=== PATIENT | male | born 1970 | race African-American/Black ===

== ENCOUNTER 2016-10-24 08:51 | Emergency (ER) | payer MEDICARE ==
[~2016-10-24] VITALS: Ht 182.9 cm; Wt 140.0 kg
[~2016-10-24 08:51] MED LIST: BENAZEPRIL PO; GLYB5TAB7 PO; INSU3INS6 SUBCUT; LORA0.5T2 PO; METFORMIN PO
[2016-10-24 09:53] VITALS: BP 179/83
== END 2016-10-24 12:55 | disposition left against medical advice (07) ==
LOC: ER 09:38
DX: Z53.21 Procedure and treatment not carried out due to patient leaving prior to being seen by health care provider (principal); E11.9 Type 2 diabetes mellitus without complications; I10 Essential (primary) hypertension

== ENCOUNTER 2017-02-07 00:51 | Emergency (ER) | payer MEDICARE, MEDICAID ==
[~2017-02-07] VITALS: Ht 190.5 cm; Wt 181.0 kg
[2017-02-07] MEDS ORDERED: MORPHINE SULFATE 10 MG/ML CPJ IV ONE (02:45)
[2017-02-07] MEDS ORDERED: SODIUM CHLORIDE 0.9% 1,000 ML IV ONE (02:45)
[2017-02-07 03:15] LABS: BASOPHILS % 0.9 % (0.0-2.0); EOSINOPHILS % 2.3 % (0.0-5.0); HEMATOCRIT. 39.3 % (42.0-52.0); HEMOGLOBIN. 13.6 g/dL (14.0-18.0); LYMPHOCYTES % 30.2 % (20.0-50.0); MEAN CORPUSCULAR HEMOGLOBIN 30.6 pg (28.0-32.0); MEAN CORPUSCULAR VOLUME 88.8 fL (80.0-94.0); MEAN PLATELET VOLUME 9.6 fl (7.4-10.4); MONOCYTES % 5.8 % (2.0-8.0); NEUTROPHILS % 60.8 % (40.0-76.0); PLATELET 312 x1000/uL (130-400); RED BLOOD CELL COUNT 4.43 mill/uL (4.7-6.1); RED CELL DISTRIBUTION WIDTH 12.6 % (11.6-14.6)
[2017-02-07 03:30] LABS: CARBON DIOXIDE 30 mEq/L (21-32); CHLORIDE 101 mEq/L (98-107); TROPONIN I < 0.02 ng/mL (0.00-0.04)
[2017-02-07] MEDS ORDERED: OXYCODONE HCL/ACETAMINOPHEN 5/325MG TABLET PO ONE (06:30)
[2017-02-07 07:01] VITALS: BP 175/99
== END 2017-02-07 07:02 | disposition home or self-care (01) ==
LOC: ER 02:57
DX: B34.9 Viral infection, unspecified (principal); E11.65 Type 2 diabetes mellitus with hyperglycemia; F17.200 Nicotine dependence, unspecified, uncomplicated; I10 Essential (primary) hypertension; Z79.4 Long term (current) use of insulin
CPT/HCPCS: 36415; 71045; 80053; 82962; 83605; 83690; 84484; 85025; 96361; 96374; 99285; J2270; J7030

== ENCOUNTER 2017-03-30 10:57 | Inpatient (IN) | payer MEDICARE, MEDICAID ==
[~2017-03-30] VITALS: Ht 182.9 cm; Wt 190.5 kg
[2017-03-30] MEDS ORDERED: BENAZEPRIL 10MG TABLET PO ONE (12:15)
[2017-03-30] MEDS ORDERED: IPRATROPIUM/ALBUTEROL 0.5-3(2.5)MG/3ML NEB HHN ONE (12:15)
[2017-03-30] MEDS ORDERED: CLONIDINE 0.1MG TABLET PO ONE (12:15)
[2017-03-30 12:24] LABS: BASOPHILS % 0.7 % (0.0-2.0); EOSINOPHILS % 1.9 % (0.0-5.0); HEMATOCRIT. 35.1 % (42.0-52.0); HEMOGLOBIN. 11.8 g/dL (14.0-18.0); LYMPHOCYTES % 8.1 % (20.0-50.0); MEAN CORPUSCULAR HEMOGLOBIN 30.1 pg (28.0-32.0); MEAN CORPUSCULAR VOLUME 89.6 fL (80.0-94.0); MEAN PLATELET VOLUME 9.9 fl (7.4-10.4); MONOCYTES % 4.7 % (2.0-8.0); NEUTROPHILS % 84.6 % (40.0-76.0); PLATELET 249 x1000/uL (130-400); RED BLOOD CELL COUNT 3.92 mill/uL (4.7-6.1); RED CELL DISTRIBUTION WIDTH 12.7 % (11.6-14.6)
[2017-03-30 12:25] LABS: PROTHROMBIN TIME 10.5 sec (9.4-11.6)
[2017-03-30 12:30] LABS: CHLORIDE 102 mEq/L (98-107)
[2017-03-30 12:35] LABS: TROPONIN I < 0.02 ng/mL (0.00-0.04)
[2017-03-30 13:15] LABS: CLARITY URINE CLEAR (CLEAR); COLOR URINE YELLOW (YELLOW); KETONES URINE TRACE (NEGATIVE); LEUKOCYTE ESTERASE URINE NEGATIVE (NEGATIVE); NITRITE URINE NEGATIVE (NEGATIVE); OCCULT BLOOD URINE NEGATIVE (NEGATIVE); PROTEIN URINE 1+ (NEGATIVE); SPECIFIC GRAVITY URINE 1.037 (1.005-1.030)
[2017-03-30 13:38] LABS: *AMPHETAMINES SCREEN URINE NEGATIVE (NEGATIVE); *BARBITURATES SCREEN URINE NEGATIVE (NEGATIVE); *BENZODIAZEPINES SCREEN URINE NEGATIVE (NEGATIVE); *COCAINE SCREEN URINE NEGATIVE (NEGATIVE)
[2017-03-30 13:42] LABS: CANNABINOID URINE SCREEN NEGATIVE (NEGATIVE); METHADONE URINE SCREEN NEGATIVE (NEGATIVE); OPIATES URINE SCREEN PRESUMTIVE POSITIVE (NEGATIVE); PHENCYCLIDINE URINE SCREEN NEGATIVE (NEGATIVE)
[2017-03-30] MEDS ORDERED: DIPHENHYDRAMINE 50MG/ML VIAL IV PRN (18:00)
[2017-03-30] MEDS ORDERED: IPRATROPIUM/ALBUTEROL 0.5-3(2.5)MG/3ML NEB INH PRN (18:00)
[2017-03-30] MEDS ORDERED: ACETAMINOPHEN 650MG SUPP PR PRN (18:00)
[2017-03-30] MEDS ORDERED: ONDANSETRON HCL 4MG/2ML VIAL IV PRN (18:00)
[2017-03-30] MEDS ORDERED: MAGNESIUM/ALUMINUM HYDROXIDE/SIMETHICONE 30ML UDC PO PRN (18:00)
[2017-03-30] MEDS ORDERED: NA PHOS,M-B/NA PHOS,DI-BA ENEMA 118ML PR PRN (18:00)
[2017-03-30] MEDS ORDERED: DEXTROSE 50% WATER 50ML SYRINGE IV PRN (18:00)
[2017-03-30] MEDS: LORAZEPAM 2MG/ML CPJ IV PRN (18:16)
[2017-03-30] MEDS: CLONIDINE 0.1MG TABLET PO PRN (18:17)
[2017-03-30] MEDS: HYDROCODONE/ACETAMINOPHEN 5/325MG TABLET PO PRN (18:17)
[2017-03-30] MEDS ORDERED: PROPOFOL 10MG/ML 100ML 100 ML IV SCH (19:00)
[2017-03-30] MEDS ORDERED: NITROGLYCERIN 50MG PREMIX 250 ML IV ONE (20:15)
[2017-03-30 20:24] LABS: CHLORIDE 102 mEq/L (98-107)
[2017-03-30] MEDS ORDERED: MIDAZOLAM HCL 2 MG/2 ML VIAL IV ONE (20:30)
[2017-03-30] MEDS ORDERED: MIDAZOLAM HCL 50 MG in DEXTROSE 5% WATER 40 ML IV ONE ×4 (20:30)
[2017-03-30 20:37] LABS: BG BASE EXCESS -5.9 mmol/L (-2.0-2.0); BG CARBOXYHEMOGLOBIN 1.3 % (0.5-1.5); BG DEOXYHEMOGLOBIN 4.9 % (0.0-5.0); BG FRACTION INSPIRED OXYGEN 100; BG METHEMOGLOBIN 0.3 % (0.0-1.5); BG OXYHEMOGLOBIN 93.5 % (94.0-97.0); BG PCO2 54.3 mmHg (35.0-45.0); BG PH 7.226 (7.350-7.450); BG PO2 91.4 mmHg (75.0-100.0); BG SAMPLE SITE LEFT RADIAL; BG TIDAL VOLUME(mL) 500 mL; BG TOTAL HEMOGLOBIN 12.3 g/dL (12.0-18.0); BG VENT MODE VENT - A/C; BG VENT RATE 16 set
[2017-03-30] MEDS ORDERED: PIPERACILLIN/TAZ 3.375G PREMIX 50 ML IV ONE (21:00)
[2017-03-30] MEDS ORDERED: ACETAMINOPHEN 650MG/20.3ML UDC PO ONE (21:00)
[2017-03-30] MEDS ORDERED: VANCOMYCIN 1 G PREMIX 200 ML IV ONE (21:00)
[2017-03-30 21:15] LABS: CREATINE KINASE 152 IU/L (39-308)
[2017-03-30] MEDS ORDERED: ASPIRIN 81MG TABLET PO ONE (21:15)
[2017-03-30 22:30] VITALS: BP 148/113
[2017-03-30 23:00] VITALS: BP_SYST 123; BP_SYST 155; BP_DIAS 80; BP_DIAS 89
[2017-03-30 23:30] VITALS: BP 74/50
[2017-03-31] VITALS (76 sets, daily range): BP systolic 63–207; BP diastolic 34–146
[2017-03-31] LABS: BG BASE EXCESS -4.1 mmol/L (-2.0-2.0); BG CARBOXYHEMOGLOBIN 0.8 % (0.5-1.5); BG DEOXYHEMOGLOBIN 10.5 % (0.0-5.0); BG FRACTION INSPIRED OXYGEN 80; BG HCO3 ACT 21.4 mmol/L (22.0-26.0); BG METHEMOGLOBIN 0.2 % (0.0-1.5); BG OXYGEN SATURATION 89.4 % (92.0-98.5); BG OXYHEMOGLOBIN 88.5 % (94.0-97.0); BG PCO2 40.8 mmHg (35.0-45.0); BG PH 7.338 (7.350-7.450); BG PO2 61.2 mmHg (75.0-100.0); BG SAMPLE SITE RIGHT RADIAL; BG TIDAL VOLUME(mL) 600 mL; BG TOTAL HEMOGLOBIN 11.8 g/dL (12.0-18.0); BG VENT MODE VENT - A/C; BG VENT RATE 16 set
[2017-03-31] MEDS ORDERED: PIPERACILLIN/TAZ 2.25G PREMIX 50 ML IV SCH (00:15)
[2017-03-31] MEDS ORDERED: NOREPINEPHRINE 4 MG in DEXT 5% WATER 246 ML IV PRN (00:15)
[2017-03-31 01:05] LABS: CHLORIDE 103 mEq/L (98-107)
[2017-03-31] MEDS: PROPOFOL 10MG/ML 100ML 100 ML IV PRN ×13 (01:51→22:28)
[2017-03-31] MEDS: IPRATROPIUM/ALBUTEROL 0.5-3(2.5)MG/3ML NEB INH SCH ×4 (01:59→20:42)
[2017-03-31] MEDS ORDERED: VANCOMYCIN 1250MG in DEXTROSE 5% WATER 250ML IV SCH (04:00)
[2017-03-31 05:32] LABS: HEMOGLOBIN. 9.6 g/dL (14.0-18.0); MEAN CORPUSCULAR HEMOGLOBIN 29.8 pg (28.0-32.0); MEAN CORPUSCULAR VOLUME 90.2 fL (80.0-94.0); MEAN PLATELET VOLUME 9.7 fl (7.4-10.4); PLATELET 225 x1000/uL (130-400); RED BLOOD CELL COUNT 3.22 mill/uL (4.7-6.1); RED CELL DISTRIBUTION WIDTH 13.2 % (11.6-14.6)
[2017-03-31 06:15] LABS: CHLORIDE 104 mEq/L (98-107)
[2017-03-31 06:21] LABS: CREATINE KINASE 300 IU/L (39-308); CREATINE KINASE MB FRACTION 2.3 ng/mL (0.5-3.6); HDL CHOLESTEROL 31 mg/dL (40-59); LDL CHOLESTEROL 44 mg/dL (5-100); TROPONIN I 0.29 ng/mL (0.00-0.04)
[2017-03-31] MEDS: SODIUM CHLORIDE 0.9% INJ 3ML FLUSH IVF SCH ×3 (06:22→21:53)
[2017-03-31] MEDS: INSULIN LISPRO 100 UNITS/ML SUBCUT SCH ×4 (06:23→21:59)
[2017-03-31] MEDS: BLOOD SUGAR DIAGNOSTIC STRIP TEST SCH ×4 (06:24→21:46)
[2017-03-31] MEDS: PIPERACILLIN/TAZ 3.375G PREMIX 50 ML IV SCH ×3 (06:24→21:54)
[2017-03-31 06:52] LABS: PLATELET ESTIMATE NORMAL
[2017-03-31] MEDS: ENOXAPARIN 40MG/0.4ML SYR SUBCUT SCH ×2 (09:46→21:58)
[2017-03-31] MEDS: FUROSEMIDE 40MG/4ML VIAL IVP SCH (09:46)
[2017-03-31] MEDS ORDERED: PIPERACILLIN/TAZ 3.375G PREMIX 50 ML IV SCH (10:45)
[2017-03-31 11:15] LABS: BG BASE EXCESS 3.4 mmol/L (-2.0-2.0); BG CARBOXYHEMOGLOBIN 0.2 % (0.5-1.5); BG DEOXYHEMOGLOBIN 3.3 % (0.0-5.0); BG FRACTION INSPIRED OXYGEN 100; BG HCO3 ACT 28.1 mmol/L (22.0-26.0); BG METHEMOGLOBIN 0.2 % (0.0-1.5); BG OXYGEN SATURATION 96.7 % (92.0-98.5); BG OXYHEMOGLOBIN 96.3 % (94.0-97.0); BG PCO2 43.4 mmHg (35.0-45.0); BG PH 7.429 (7.350-7.450); BG PO2 93.4 mmHg (75.0-100.0); BG SAMPLE SITE LEFT RADIAL; BG TIDAL VOLUME(mL) 600 mL; BG TOTAL HEMOGLOBIN 10.8 g/dL (12.0-18.0); BG VENT MODE VENT - A/C; BG VENT RATE 16 set
[2017-03-31] MEDS: CLONIDINE 0.1MG TABLET PO PRN ×2 (13:54→22:53)
[2017-03-31] MEDS: LORAZEPAM 2MG/ML CPJ IV PRN ×2 (15:09→20:32)
[2017-03-31] MEDS: NITROGLYCERIN 50MG PREMIX 250 ML IV PRN ×2 (15:30→23:48)
[2017-03-31 15:43] LABS: CREATINE KINASE MB FRACTION 2.6 ng/mL (0.5-3.6); T4 FREE 1.1 ng/dL (0.76-1.46)
[2017-03-31 15:47] LABS: TROPONIN I 0.62 ng/mL (0.00-0.04)
[2017-03-31] MEDS: VANCOMYCIN 2,000 MG in DEXT 5% WATER 500 ML IV SCH (17:37)
[2017-03-31] MEDS: HYDROCODONE/ACETAMINOPHEN 5/325MG TABLET PO PRN (20:25)
[2017-03-31] MEDS: METOPROLOL TARTRATE 25MG TABLET NG SCH (21:53)
[2017-03-31] MEDS: INSULIN GLARGINE UD 100 UNITS/ML SYR SUBCUT SCH (22:16)
[2017-03-31] MEDS: CLONIDINE 0.1MG TABLET NG SCH (22:19)
[2017-03-31] MEDS: MIDAZOLAM HCL 100 MG in DEXT 5% WATER 80 ML IV PRN (22:30)
[2017-04-01] VITALS (99 sets, daily range): BP systolic 100–172; BP diastolic 54–112
[2017-04-01 00:16] LABS: TROPONIN I 0.49 ng/mL (0.00-0.04)
[2017-04-01] MEDS: PROPOFOL 10MG/ML 100ML 100 ML IV PRN ×11 (00:17→23:16)
[2017-04-01] MEDS: IPRATROPIUM/ALBUTEROL 0.5-3(2.5)MG/3ML NEB INH SCH ×4 (02:43→20:53)
[2017-04-01] MEDS: PIPERACILLIN/TAZ 3.375G PREMIX 50 ML IV SCH ×4 (03:56→21:26)
[2017-04-01] MEDS: NITROGLYCERIN 50MG PREMIX 250 ML IV PRN ×2 (04:26→11:54)
[2017-04-01] MEDS: CLONIDINE 0.1MG TABLET PO PRN ×3 (05:47→17:34)
[2017-04-01] MEDS: VANCOMYCIN 2,000 MG in DEXT 5% WATER 500 ML IV SCH ×2 (05:47→17:12)
[2017-04-01] MEDS: SODIUM CHLORIDE 0.9% INJ 3ML FLUSH IVF SCH ×3 (05:48→23:23)
[2017-04-01] MEDS: BLOOD SUGAR DIAGNOSTIC STRIP TEST SCH ×4 (06:05→21:54)
[2017-04-01] MEDS: CLONIDINE 0.1MG TABLET NG SCH ×3 (07:01→23:15)
[2017-04-01] MEDS: INSULIN LISPRO 100 UNITS/ML SUBCUT SCH ×4 (07:01→21:27)
[2017-04-01 07:11] LABS: CREATINE KINASE MB FRACTION 0.9 ng/mL (0.5-3.6); TROPONIN I 0.31 ng/mL (0.00-0.04)
[2017-04-01] MEDS: MIDAZOLAM HCL 100 MG in DEXT 5% WATER 80 ML IV PRN ×2 (07:55→17:34)
[2017-04-01] MEDS: FUROSEMIDE 40MG/4ML VIAL IVP SCH (08:37)
[2017-04-01] MEDS: ENOXAPARIN 40MG/0.4ML SYR SUBCUT SCH ×2 (08:37→21:29)
[2017-04-01] MEDS: METOPROLOL TARTRATE 25MG TABLET NG SCH ×2 (08:38→21:30)
[2017-04-01] MEDS: INSULIN GLARGINE UD 100 UNITS/ML SYR SUBCUT SCH ×2 (10:11→23:18)
[2017-04-01] MEDS ORDERED: AMLODIPINE 10MG TABLET PO SCH (12:00)
[2017-04-01 12:23] LABS: BASOPHILS % 0.6 % (0.0-2.0); EOSINOPHILS % 0.2 % (0.0-5.0); HEMATOCRIT. 26.5 % (42.0-52.0); HEMOGLOBIN. 8.8 g/dL (14.0-18.0); LYMPHOCYTES % 7.5 % (20.0-50.0); MEAN CORPUSCULAR HEMOGLOBIN 29.8 pg (28.0-32.0); MEAN CORPUSCULAR VOLUME 89.9 fL (80.0-94.0); MEAN PLATELET VOLUME 10.2 fl (7.4-10.4); MONOCYTES % 6.2 % (2.0-8.0); NEUTROPHILS % 85.5 % (40.0-76.0); PLATELET 237 x1000/uL (130-400); RED BLOOD CELL COUNT 2.95 mill/uL (4.7-6.1); RED CELL DISTRIBUTION WIDTH 12.9 % (11.6-14.6)
[2017-04-01 12:30] LABS: CHLORIDE 103 mEq/L (98-107)
[2017-04-01 13:44] LABS: BG BASE EXCESS 4.6 mmol/L (-2.0-2.0); BG CARBOXYHEMOGLOBIN 0.3 % (0.5-1.5); BG DEOXYHEMOGLOBIN 3.3 % (0.0-5.0); BG FRACTION INSPIRED OXYGEN 90; BG HCO3 ACT 29.5 mmol/L (22.0-26.0); BG METHEMOGLOBIN 0.5 % (0.0-1.5); BG OXYGEN SATURATION 96.7 % (92.0-98.5); BG OXYHEMOGLOBIN 95.9 % (94.0-97.0); BG PCO2 45.9 mmHg (35.0-45.0); BG PH 7.426 (7.350-7.450); BG PO2 90.7 mmHg (75.0-100.0); BG SAMPLE SITE RIGHT RADIAL; BG TIDAL VOLUME(mL) 650 mL; BG TOTAL HEMOGLOBIN 9.7 g/dL (12.0-18.0); BG VENT MODE VENT - A/C; BG VENT RATE 16 set
[2017-04-01] MEDS ORDERED: POTASSIUM CHLORIDE 20MEQ TABLET SR PO SCH (15:00)
[2017-04-01 20:43] LABS: BG BASE EXCESS 6.4 mmol/L (-2.0-2.0); BG CARBOXYHEMOGLOBIN 0.1 % (0.5-1.5); BG DEOXYHEMOGLOBIN 0.6 % (0.0-5.0); BG FRACTION INSPIRED OXYGEN 90; BG METHEMOGLOBIN 0.4 % (0.0-1.5); BG OXYGEN SATURATION 99.4 % (92.0-98.5); BG OXYHEMOGLOBIN 98.9 % (94.0-97.0); BG PCO2 58.2 mmHg (35.0-45.0); BG PH 7.371 (7.350-7.450); BG PO2 253.8 mmHg (75.0-100.0); BG SAMPLE SITE RIGHT RADIAL; BG TIDAL VOLUME(mL) 650 mL; BG TOTAL HEMOGLOBIN 10.5 g/dL (12.0-18.0); BG VENT MODE VENT - A/C; BG VENT RATE 16 set
[2017-04-01] MEDS: ACETAMINOPHEN 650MG/20.3ML UDC GT PRN (21:26)
[2017-04-02] VITALS (87 sets, daily range): BP systolic 119–187; BP diastolic 63–104
[2017-04-02] MEDS: PROPOFOL 10MG/ML 100ML 100 ML IV PRN ×6 (01:01→10:17)
[2017-04-02] MEDS: PIPERACILLIN/TAZ 3.375G PREMIX 50 ML IV SCH ×4 (02:38→22:00)
[2017-04-02] MEDS: IPRATROPIUM/ALBUTEROL 0.5-3(2.5)MG/3ML NEB INH SCH ×4 (03:15→20:26)
[2017-04-02] MEDS: MIDAZOLAM HCL 100 MG in DEXT 5% WATER 80 ML IV PRN ×2 (03:50→14:11)
[2017-04-02] MEDS: VANCOMYCIN 2,000 MG in DEXT 5% WATER 500 ML IV SCH ×3 (05:03→22:00)
[2017-04-02] MEDS: SODIUM CHLORIDE 0.9% INJ 3ML FLUSH IVF SCH ×3 (05:04→21:53)
[2017-04-02] MEDS: CLONIDINE 0.1MG TABLET NG SCH ×3 (05:04→22:01)
[2017-04-02] MEDS: BLOOD SUGAR DIAGNOSTIC STRIP TEST SCH ×4 (05:52→21:00)
[2017-04-02] MEDS: INSULIN LISPRO 100 UNITS/ML SUBCUT SCH ×4 (06:03→22:03)
[2017-04-02 06:44] LABS: BASOPHILS % 0.4 % (0.0-2.0); EOSINOPHILS % 2.2 % (0.0-5.0); HEMATOCRIT. 27.3 % (42.0-52.0); HEMOGLOBIN. 8.8 g/dL (14.0-18.0); LYMPHOCYTES % 9.2 % (20.0-50.0); MEAN CORPUSCULAR HEMOGLOBIN 29.3 pg (28.0-32.0); MEAN CORPUSCULAR VOLUME 91.2 fL (80.0-94.0); MEAN PLATELET VOLUME 10.1 fl (7.4-10.4); MONOCYTES % 6.1 % (2.0-8.0); NEUTROPHILS % 82.1 % (40.0-76.0); PLATELET 254 x1000/uL (130-400); RED CELL DISTRIBUTION WIDTH 13.3 % (11.6-14.6)
[2017-04-02 07:31] LABS: CHLORIDE 101 mEq/L (98-107)
[2017-04-02] MEDS: ACETAMINOPHEN 650MG/20.3ML UDC GT PRN (08:01)
[2017-04-02] MEDS: AMLODIPINE 10MG TABLET PO SCH (08:02)
[2017-04-02] MEDS: ENOXAPARIN 40MG/0.4ML SYR SUBCUT SCH ×2 (08:02→22:01)
[2017-04-02] MEDS: METOPROLOL TARTRATE 25MG TABLET NG SCH ×2 (08:02→22:01)
[2017-04-02] MEDS: FUROSEMIDE 40MG/4ML VIAL IVP SCH (08:02)
[2017-04-02 08:55] LABS: BG BASE EXCESS 5.5 mmol/L (-2.0-2.0); BG CARBOXYHEMOGLOBIN 0.9 % (0.5-1.5); BG DEOXYHEMOGLOBIN 1.6 % (0.0-5.0); BG FRACTION INSPIRED OXYGEN 65; BG HCO3 ACT 30.6 mmol/L (22.0-26.0); BG METHEMOGLOBIN 0.5 % (0.0-1.5); BG OXYGEN SATURATION 98.4 % (92.0-98.5); BG PCO2 47.1 mmHg (35.0-45.0); BG PO2 120.1 mmHg (75.0-100.0); BG SAMPLE SITE RIGHT RADIAL; BG TIDAL VOLUME(mL) 650 mL; BG TOTAL HEMOGLOBIN 9.7 g/dL (12.0-18.0); BG VENT MODE VENT - A/C; BG VENT RATE 16 set
[2017-04-02] MEDS: INSULIN GLARGINE UD 100 UNITS/ML SYR SUBCUT SCH ×2 (10:16→22:03)
[2017-04-02] MEDS: FENTANYL CITRATE/PF 500 MCG in SODIUM CHLORIDE 0.9% 40 ML IV PRN ×2 (11:33→17:24)
[2017-04-02] MEDS ORDERED: BISACODYL 10MG SUPP PR PRN (11:45)
[2017-04-02] MEDS: PANTOPRAZOLE SODIUM 40 MG/VIAL IV SCH (13:00)
[2017-04-02] MEDS: DOCUSATE SODIUM SUGAR FREE 100MG/10ML UDC NG SCH (13:01)
[2017-04-02] MEDS: METHYLPREDNISOLONE SOD SUCC 40 MG/ML VIAL IV SCH ×2 (14:17→22:56)
[2017-04-02] MEDS: CLONIDINE 0.1MG TABLET PO PRN (16:14)
[2017-04-03] VITALS (81 sets, daily range): BP systolic 142–201; BP diastolic 68–138
[2017-04-03] MEDS: MIDAZOLAM HCL 100 MG in DEXT 5% WATER 80 ML IV PRN ×2 (01:37→13:44)
[2017-04-03] MEDS: IPRATROPIUM/ALBUTEROL 0.5-3(2.5)MG/3ML NEB INH SCH ×4 (02:38→20:12)
[2017-04-03] MEDS: PIPERACILLIN/TAZ 3.375G PREMIX 50 ML IV SCH ×4 (02:45→20:30)
[2017-04-03] MEDS: FENTANYL CITRATE/PF 500 MCG in SODIUM CHLORIDE 0.9% 40 ML IV PRN ×3 (04:29→23:18)
[2017-04-03] MEDS: VANCOMYCIN 2,000 MG in DEXT 5% WATER 500 ML IV SCH ×3 (04:32→20:30)
[2017-04-03] MEDS: SODIUM CHLORIDE 0.9% INJ 3ML FLUSH IVF SCH ×3 (06:00→20:32)
[2017-04-03] MEDS: BLOOD SUGAR DIAGNOSTIC STRIP TEST SCH ×4 (06:30→20:32)
[2017-04-03] MEDS: INSULIN LISPRO 100 UNITS/ML SUBCUT SCH ×4 (06:40→20:32)
[2017-04-03] MEDS: CLONIDINE 0.1MG TABLET NG SCH ×3 (06:40→21:02)
[2017-04-03 07:52] LABS: BG BASE EXCESS 5.1 mmol/L (-2.0-2.0); BG CARBOXYHEMOGLOBIN 1.4 % (0.5-1.5); BG DEOXYHEMOGLOBIN 3.5 % (0.0-5.0); BG FRACTION INSPIRED OXYGEN 60; BG METHEMOGLOBIN 0.3 % (0.0-1.5); BG OXYGEN SATURATION 96.4 % (92.0-98.5); BG OXYHEMOGLOBIN 94.8 % (94.0-97.0); BG PH 7.478 (7.350-7.450); BG SAMPLE SITE LEFT RADIAL; BG TIDAL VOLUME(mL) 650 mL; BG TOTAL HEMOGLOBIN 13.1 g/dL (12.0-18.0); BG VENT MODE VENT - A/C; BG VENT RATE 16 set
[2017-04-03] MEDS: METHYLPREDNISOLONE SOD SUCC 40 MG/ML VIAL IV SCH ×2 (10:28→20:30)
[2017-04-03] MEDS: DOCUSATE SODIUM SUGAR FREE 100MG/10ML UDC NG SCH (10:28)
[2017-04-03] MEDS: FUROSEMIDE 40MG/4ML VIAL IVP SCH (10:28)
[2017-04-03] MEDS: METOPROLOL TARTRATE 25MG TABLET NG SCH ×2 (10:29→20:30)
[2017-04-03] MEDS: AMLODIPINE 10MG TABLET PO SCH (10:29)
[2017-04-03] MEDS: ENOXAPARIN 40MG/0.4ML SYR SUBCUT SCH ×2 (10:30→20:30)
[2017-04-03] MEDS: INSULIN GLARGINE UD 100 UNITS/ML SYR SUBCUT SCH ×2 (10:35→22:17)
[2017-04-03] MEDS: PANTOPRAZOLE SODIUM 40 MG/VIAL IV SCH (12:36)
[2017-04-03] MEDS: ACETAMINOPHEN 650MG/20.3ML UDC GT PRN (12:36)
[2017-04-03] MEDS: CLONIDINE 0.1MG TABLET PO PRN (16:55)
[2017-04-03 17:18] LABS: CHLORIDE 102 mEq/L (98-107)
[2017-04-03] MEDS ORDERED: DEXTROSE 50% WATER 50ML SYRINGE IV PRN (19:45)
[2017-04-04] VITALS (98 sets, daily range): BP systolic 132–204; BP diastolic 57–163
[2017-04-04] MEDS: MIDAZOLAM HCL 100 MG in DEXT 5% WATER 80 ML IV PRN (00:34)
[2017-04-04] MEDS: IPRATROPIUM/ALBUTEROL 0.5-3(2.5)MG/3ML NEB INH SCH ×4 (01:35→19:54)
[2017-04-04] MEDS: PIPERACILLIN/TAZ 3.375G PREMIX 50 ML IV SCH ×4 (02:49→21:22)
[2017-04-04] MEDS: CLONIDINE 0.1MG TABLET PO PRN ×2 (02:49→07:10)
[2017-04-04] MEDS: SODIUM CHLORIDE 0.9% INJ 3ML FLUSH IVF SCH ×3 (05:12→21:27)
[2017-04-04] MEDS: VANCOMYCIN 2,000 MG in DEXT 5% WATER 500 ML IV SCH ×3 (05:13→21:22)
[2017-04-04] MEDS: CLONIDINE 0.1MG TABLET NG SCH ×3 (05:13→21:24)
[2017-04-04] MEDS: NITROGLYCERIN 50MG PREMIX 250 ML IV PRN ×2 (06:04→17:57)
[2017-04-04] MEDS: INSULIN LISPRO 100 UNITS/ML SUBCUT SCH ×4 (06:22→21:27)
[2017-04-04] MEDS: BLOOD SUGAR DIAGNOSTIC STRIP TEST SCH ×4 (06:22→21:00)
[2017-04-04] MEDS: DOCUSATE SODIUM SUGAR FREE 100MG/10ML UDC NG SCH (09:00)
[2017-04-04] MEDS: ACETAMINOPHEN 650MG/20.3ML UDC GT PRN ×2 (09:47→15:44)
[2017-04-04] MEDS: METHYLPREDNISOLONE SOD SUCC 40 MG/ML VIAL IV SCH ×2 (09:48→21:22)
[2017-04-04] MEDS: FUROSEMIDE 40MG/4ML VIAL IVP SCH (09:51)
[2017-04-04] MEDS: METOPROLOL TARTRATE 25MG TABLET NG SCH ×2 (09:51→21:24)
[2017-04-04] MEDS: HYDRALAZINE HCL 50MG TABLET PO SCH ×3 (09:51→21:24)
[2017-04-04] MEDS: ENOXAPARIN 40MG/0.4ML SYR SUBCUT SCH ×2 (09:52→21:22)
[2017-04-04] MEDS: AMLODIPINE 10MG TABLET PO SCH (09:55)
[2017-04-04] MEDS: INSULIN GLARGINE UD 100 UNITS/ML SYR SUBCUT SCH ×2 (10:01→21:26)
[2017-04-04 12:27] LABS: CHLORIDE 106 mEq/L (98-107)
[2017-04-04 12:35] LABS: BG BASE EXCESS 11.1 mmol/L (-2.0-2.0); BG CARBOXYHEMOGLOBIN 0.3 % (0.5-1.5); BG DEOXYHEMOGLOBIN 4.8 % (0.0-5.0); BG FRACTION INSPIRED OXYGEN 70; BG HCO3 ACT 35.4 mmol/L (22.0-26.0); BG METHEMOGLOBIN 0.2 % (0.0-1.5); BG OXYGEN SATURATION 95.2 % (92.0-98.5); BG OXYHEMOGLOBIN 94.7 % (94.0-97.0); BG PCO2 46.1 mmHg (35.0-45.0); BG PH 7.503 (7.350-7.450); BG PO2 76.5 mmHg (75.0-100.0); BG SAMPLE SITE LEFT RADIAL; BG TIDAL VOLUME(mL) 650 mL; BG TOTAL HEMOGLOBIN 9.3 g/dL (12.0-18.0); BG VENT MODE VENT - A/C; BG VENT RATE 16 set
[2017-04-04] MEDS: PANTOPRAZOLE SODIUM 40 MG/VIAL IV SCH (12:54)
[2017-04-04 13:02] LABS: BASOPHILS % 0.9 % (0.0-2.0); EOSINOPHILS % 1.3 % (0.0-5.0); HEMATOCRIT. 26.2 % (42.0-52.0); HEMOGLOBIN. 8.3 g/dL (14.0-18.0); LYMPHOCYTES % 7.9 % (20.0-50.0); MEAN CORPUSCULAR HEMOGLOBIN 28.7 pg (28.0-32.0); MEAN CORPUSCULAR VOLUME 90.1 fL (80.0-94.0); MEAN PLATELET VOLUME 8.8 fl (7.4-10.4); MONOCYTES % 7.9 % (2.0-8.0); PLATELET 346 x1000/uL (130-400); RED BLOOD CELL COUNT 2.91 mill/uL (4.7-6.1); RED CELL DISTRIBUTION WIDTH 13.3 % (11.6-14.6)
[2017-04-04] MEDS ORDERED: LIDOCAINE HCL/PF 1% 10 MG/ML 5ML VIAL ONE (14:27)
[2017-04-04] MEDS: FENTANYL CITRATE/PF 500 MCG in SODIUM CHLORIDE 0.9% 40 ML IV PRN ×2 (14:56→21:28)
[2017-04-04] MEDS ORDERED: POTASSIUM CHLORIDE INJ 40 MEQ in SODIUM CHLORIDE 0.9% 250 ML IV SCH (16:00)
[2017-04-04] MEDS: HYDROCODONE/ACETAMINOPHEN 5/325MG TABLET PO PRN (16:17)
[2017-04-04] MEDS ORDERED: PREG100C PO (16:53)
[2017-04-04] MEDS ORDERED: OXYC15TA88 PO (16:53)
[2017-04-04] MEDS ORDERED: CYCL5TAB PO (16:53)
[2017-04-04] MEDS ORDERED: OMEP20CA10 PO (16:53)
[2017-04-04] MEDS ORDERED: HYDR-4009 PO (16:53)
[2017-04-04] MEDS ORDERED: TRIA1TAB92 PO (16:53)
[2017-04-04] MEDS ORDERED: CHOL20004 PO (16:53)
[2017-04-04] MEDS ORDERED: FLUO-124 PO (16:53)
[2017-04-04] MEDS ORDERED: ZOLP10TA6 PO (16:53)
[2017-04-04] MEDS ORDERED: PENT400T2 PO (16:53)
[2017-04-05] VITALS (90 sets, daily range): BP systolic 90–186; BP diastolic 45–92
[2017-04-05] MEDS: MIDAZOLAM HCL 100 MG in DEXT 5% WATER 80 ML IV PRN (01:21)
[2017-04-05] MEDS: CLONIDINE 0.1MG TABLET PO PRN ×3 (01:43→15:08)
[2017-04-05] MEDS: IPRATROPIUM/ALBUTEROL 0.5-3(2.5)MG/3ML NEB INH SCH ×4 (01:58→20:09)
[2017-04-05] MEDS: FENTANYL CITRATE/PF 500 MCG in SODIUM CHLORIDE 0.9% 40 ML IV PRN ×3 (02:54→15:03)
[2017-04-05] MEDS: NITROGLYCERIN 50MG PREMIX 250 ML IV PRN ×3 (02:54→15:02)
[2017-04-05] MEDS: PIPERACILLIN/TAZ 3.375G PREMIX 50 ML IV SCH ×2 (02:57→08:58)
[2017-04-05] MEDS: SODIUM CHLORIDE 0.9% INJ 3ML FLUSH IVF SCH ×3 (05:10→22:51)
[2017-04-05] MEDS: VANCOMYCIN 2,000 MG in DEXT 5% WATER 500 ML IV SCH ×2 (05:58→12:09)
[2017-04-05] MEDS: BLOOD SUGAR DIAGNOSTIC STRIP TEST SCH ×4 (05:59→21:26)
[2017-04-05] MEDS: CLONIDINE 0.1MG TABLET NG SCH (05:59)
[2017-04-05] MEDS: HYDRALAZINE HCL 50MG TABLET PO SCH ×3 (05:59→22:49)
[2017-04-05] MEDS: INSULIN LISPRO 100 UNITS/ML SUBCUT SCH ×4 (06:00→21:32)
[2017-04-05 06:01] LABS: CHLORIDE 106 mEq/L (98-107)
[2017-04-05 06:05] LABS: BASOPHILS % 0.7 % (0.0-2.0); EOSINOPHILS % 0.6 % (0.0-5.0); HEMOGLOBIN. 7.7 g/dL (14.0-18.0); LYMPHOCYTES % 15.2 % (20.0-50.0); MEAN CORPUSCULAR HEMOGLOBIN 29.3 pg (28.0-32.0); MEAN CORPUSCULAR VOLUME 91.3 fL (80.0-94.0); MEAN PLATELET VOLUME 9.7 fl (7.4-10.4); MONOCYTES % 9.9 % (2.0-8.0); NEUTROPHILS % 73.6 % (40.0-76.0); PLATELET 356 x1000/uL (130-400); RED BLOOD CELL COUNT 2.62 mill/uL (4.7-6.1)
[2017-04-05] MEDS: ACETAMINOPHEN 650MG/20.3ML UDC GT PRN ×2 (07:01→16:31)
[2017-04-05] MEDS: AMLODIPINE 10MG TABLET PO SCH (08:58)
[2017-04-05] MEDS: FUROSEMIDE 40MG/4ML VIAL IVP SCH (08:58)
[2017-04-05] MEDS: METHYLPREDNISOLONE SOD SUCC 40 MG/ML VIAL IV SCH ×2 (08:58→21:20)
[2017-04-05] MEDS: ENOXAPARIN 40MG/0.4ML SYR SUBCUT SCH ×2 (09:00→21:00)
[2017-04-05] MEDS: METOPROLOL TARTRATE 25MG TABLET NG SCH ×2 (09:01→21:31)
[2017-04-05] MEDS: DOCUSATE SODIUM SUGAR FREE 100MG/10ML UDC NG SCH (09:03)
[2017-04-05] MEDS: INSULIN GLARGINE UD 100 UNITS/ML SYR SUBCUT SCH (09:06)
[2017-04-05] MEDS: PANTOPRAZOLE SODIUM 40 MG/VIAL IV SCH (11:16)
[2017-04-05 12:17] LABS: BG BASE EXCESS 7.6 mmol/L (-2.0-2.0); BG CARBOXYHEMOGLOBIN 0.2 % (0.5-1.5); BG DEOXYHEMOGLOBIN 8.1 % (0.0-5.0); BG FRACTION INSPIRED OXYGEN 60; BG METHEMOGLOBIN 0.3 % (0.0-1.5); BG OXYGEN SATURATION 91.9 % (92.0-98.5); BG OXYHEMOGLOBIN 91.4 % (94.0-97.0); BG PCO2 44.9 mmHg (35.0-45.0); BG PH 7.471 (7.350-7.450); BG PO2 64.2 mmHg (75.0-100.0); BG SAMPLE SITE RIGHT RADIAL; BG TIDAL VOLUME(mL) 650 mL; BG TOTAL HEMOGLOBIN 9.4 g/dL (12.0-18.0); BG VENT MODE VENT - A/C; BG VENT RATE 16 set
[2017-04-05] MEDS: CLONIDINE 0.2MG TABLET NG SCH ×2 (13:30→22:50)
[2017-04-05] MEDS: CEFEPIME 1,000 MG in SODIUM CHLORIDE 0.9% 50 ML IV SCH (14:01)
[2017-04-05] MEDS: AZITHROMYCIN 500 MG TABLET PO SCH (15:07)
[2017-04-05] MEDS ORDERED: INSULIN GLARGINE UD 100 UNITS/ML SYR SUBCUT NR (19:00)
[2017-04-05] MEDS ORDERED: INSULIN GLARGINE UD 100 UNITS/ML SYR SUBCUT SCH (22:00)
[2017-04-06] VITALS (93 sets, daily range): BP systolic 111–177; BP diastolic 50–96
[2017-04-06] MEDS: FENTANYL CITRATE/PF 500 MCG in SODIUM CHLORIDE 0.9% 40 ML IV PRN ×3 (00:06→16:38)
[2017-04-06] MEDS: IPRATROPIUM/ALBUTEROL 0.5-3(2.5)MG/3ML NEB INH SCH ×4 (01:56→19:50)
[2017-04-06] MEDS: CEFEPIME 1,000 MG in SODIUM CHLORIDE 0.9% 50 ML IV SCH ×2 (02:45→13:31)
[2017-04-06] MEDS: CLONIDINE 0.1MG TABLET PO PRN (02:58)
[2017-04-06] MEDS: MIDAZOLAM HCL 100 MG in DEXT 5% WATER 80 ML IV PRN ×2 (04:12→16:38)
[2017-04-06 05:46] LABS: BASOPHILS % 0.5 % (0.0-2.0); EOSINOPHILS % 0.3 % (0.0-5.0); HEMATOCRIT. 26.1 % (42.0-52.0); HEMOGLOBIN. 8.7 g/dL (14.0-18.0); LYMPHOCYTES % 11.2 % (20.0-50.0); MEAN CORPUSCULAR HEMOGLOBIN 29.9 pg (28.0-32.0); MEAN CORPUSCULAR VOLUME 90.1 fL (80.0-94.0); MEAN PLATELET VOLUME 9.8 fl (7.4-10.4); MONOCYTES % 7.5 % (2.0-8.0); NEUTROPHILS % 80.5 % (40.0-76.0); PLATELET 375 x1000/uL (130-400); RED CELL DISTRIBUTION WIDTH 14.9 % (11.6-14.6)
[2017-04-06] MEDS: HYDRALAZINE HCL 50MG TABLET PO SCH ×3 (06:18→22:04)
[2017-04-06] MEDS: CLONIDINE 0.2MG TABLET NG SCH ×3 (06:19→22:05)
[2017-04-06] MEDS: INSULIN LISPRO 100 UNITS/ML SUBCUT SCH ×4 (06:20→21:19)
[2017-04-06] MEDS: BLOOD SUGAR DIAGNOSTIC STRIP TEST SCH ×4 (06:22→21:20)
[2017-04-06] MEDS: SODIUM CHLORIDE 0.9% INJ 3ML FLUSH IVF SCH ×3 (06:22→22:05)
[2017-04-06 06:24] LABS: CHLORIDE 104 mEq/L (98-107)
[2017-04-06 06:43] LABS: CREATINE KINASE 99 IU/L (39-308)
[2017-04-06] MEDS: ACETAMINOPHEN 650MG/20.3ML UDC GT PRN ×2 (06:55→14:41)
[2017-04-06 07:16] LABS: BARBITURATE SCREEN Negative ug/mL (Cutoff:0.1); BENZODIAZEPINE SCREEN Negative ng/mL (Cutoff:20); OPIATES SCREEN ++POSITIVE++ ng/mL (Cutoff:5); PHENCYCLIDINE SCREEN Negative ng/mL (Cutoff:8)
[2017-04-06 07:52] LABS: BG CARBOXYHEMOGLOBIN 0.7 % (0.5-1.5); BG DEOXYHEMOGLOBIN 8.9 % (0.0-5.0); BG HCO3 ACT 32.9 mmol/L (22.0-26.0); BG METHEMOGLOBIN 0.3 % (0.0-1.5); BG OXYHEMOGLOBIN 90.1 % (94.0-97.0); BG PCO2 48.2 mmHg (35.0-45.0); BG PH 7.452 (7.350-7.450); BG SAMPLE SITE RIGHT RADIAL; BG TIDAL VOLUME(mL) 650 mL; BG TOTAL HEMOGLOBIN 8.6 g/dL (12.0-18.0); BG VENT MODE VENT - A/C; BG VENT RATE 16 set
[2017-04-06] MEDS: AMLODIPINE 10MG TABLET PO SCH (08:08)
[2017-04-06] MEDS: DOCUSATE SODIUM SUGAR FREE 100MG/10ML UDC NG SCH (08:08)
[2017-04-06] MEDS: AZITHROMYCIN 500 MG TABLET PO SCH (08:08)
[2017-04-06] MEDS: METHYLPREDNISOLONE SOD SUCC 40 MG/ML VIAL IV SCH ×2 (08:08→21:23)
[2017-04-06] MEDS: FUROSEMIDE 40MG/4ML VIAL IVP SCH (08:08)
[2017-04-06] MEDS: METOPROLOL TARTRATE 25MG TABLET NG SCH ×2 (08:09→21:23)
[2017-04-06] MEDS: ENOXAPARIN 40MG/0.4ML SYR SUBCUT SCH ×2 (08:10→21:28)
[2017-04-06] MEDS ORDERED: INSULIN GLARGINE UD 100 UNITS/ML SYR SUBCUT SCH (10:00)
[2017-04-06] MEDS: PANTOPRAZOLE SODIUM 40 MG/VIAL IV SCH (11:37)
[2017-04-06] MEDS: INSULIN GLARGINE UD 100 UNITS/ML SYR SUBCUT SCH (22:11)
[2017-04-07] VITALS (85 sets, daily range): BP systolic 145–197; BP diastolic 66–121
[2017-04-07] MEDS: ACETAMINOPHEN 650MG/20.3ML UDC GT PRN ×3 (01:23→14:53)
[2017-04-07] MEDS: FENTANYL CITRATE/PF 500 MCG in SODIUM CHLORIDE 0.9% 40 ML IV PRN ×2 (02:41→08:25)
[2017-04-07] MEDS: CEFEPIME 1,000 MG in SODIUM CHLORIDE 0.9% 50 ML IV SCH ×2 (02:45→14:06)
[2017-04-07] MEDS: CLONIDINE 0.1MG TABLET PO PRN ×2 (03:40→10:10)
[2017-04-07] MEDS: BLOOD SUGAR DIAGNOSTIC STRIP TEST SCH ×4 (05:54→21:00)
[2017-04-07 06:04] LABS: BASOPHILS % 0.4 % (0.0-2.0); EOSINOPHILS % 0.3 % (0.0-5.0); HEMATOCRIT. 26.8 % (42.0-52.0); HEMOGLOBIN. 8.6 g/dL (14.0-18.0); LYMPHOCYTES % 11.1 % (20.0-50.0); MEAN CORPUSCULAR HEMOGLOBIN 29.3 pg (28.0-32.0); MEAN CORPUSCULAR VOLUME 91.3 fL (80.0-94.0); MONOCYTES % 6.8 % (2.0-8.0); NEUTROPHILS % 81.4 % (40.0-76.0); PLATELET 382 x1000/uL (130-400); RED BLOOD CELL COUNT 2.94 mill/uL (4.7-6.1); RED CELL DISTRIBUTION WIDTH 14.8 % (11.6-14.6)
[2017-04-07] MEDS: HYDRALAZINE HCL 50MG TABLET PO SCH ×3 (06:08→21:46)
[2017-04-07] MEDS: CLONIDINE 0.2MG TABLET NG SCH ×3 (06:09→21:45)
[2017-04-07] MEDS: SODIUM CHLORIDE 0.9% INJ 3ML FLUSH IVF SCH ×3 (06:10→21:44)
[2017-04-07] MEDS: INSULIN LISPRO 100 UNITS/ML SUBCUT SCH ×4 (06:14→21:42)
[2017-04-07 06:16] LABS: CHLORIDE 106 mEq/L (98-107)
[2017-04-07 08:04] LABS: BG BASE EXCESS 7.6 mmol/L (-2.0-2.0); BG CARBOXYHEMOGLOBIN 0.3 % (0.5-1.5); BG DEOXYHEMOGLOBIN 3.2 % (0.0-5.0); BG FRACTION INSPIRED OXYGEN 60; BG HCO3 ACT 31.9 mmol/L (22.0-26.0); BG METHEMOGLOBIN 0.1 % (0.0-1.5); BG OXYGEN SATURATION 96.8 % (92.0-98.5); BG OXYHEMOGLOBIN 96.4 % (94.0-97.0); BG PCO2 43.9 mmHg (35.0-45.0); BG PH 7.479 (7.350-7.450); BG PO2 89.8 mmHg (75.0-100.0); BG SAMPLE SITE RIGHT RADIAL; BG TIDAL VOLUME(mL) 650 mL; BG TOTAL HEMOGLOBIN 9.4 g/dL (12.0-18.0); BG VENT MODE VENT - A/C; BG VENT RATE 16 set
[2017-04-07] MEDS: MIDAZOLAM HCL 100 MG in DEXT 5% WATER 80 ML IV PRN (08:24)
[2017-04-07] MEDS: IPRATROPIUM/ALBUTEROL 0.5-3(2.5)MG/3ML NEB INH SCH ×3 (08:38→20:45)
[2017-04-07] MEDS: FUROSEMIDE 40MG/4ML VIAL IVP SCH (08:42)
[2017-04-07] MEDS: DOCUSATE SODIUM SUGAR FREE 100MG/10ML UDC NG SCH (08:42)
[2017-04-07] MEDS: METHYLPREDNISOLONE SOD SUCC 40 MG/ML VIAL IV SCH ×2 (08:42→21:44)
[2017-04-07] MEDS: AMLODIPINE 10MG TABLET PO SCH (08:43)
[2017-04-07] MEDS: METOPROLOL TARTRATE 25MG TABLET NG SCH ×2 (08:43→21:43)
[2017-04-07] MEDS: ENOXAPARIN 40MG/0.4ML SYR SUBCUT SCH ×2 (08:43→21:44)
[2017-04-07] MEDS: AZITHROMYCIN 500 MG TABLET PO SCH (08:43)
[2017-04-07] MEDS: INSULIN GLARGINE UD 100 UNITS/ML SYR SUBCUT SCH ×2 (10:10→21:43)
[2017-04-07 10:54] LABS: BG BASE EXCESS 8.3 mmol/L (-2.0-2.0); BG CARBOXYHEMOGLOBIN 0.6 % (0.5-1.5); BG DEOXYHEMOGLOBIN 3.1 % (0.0-5.0); BG FRACTION INSPIRED OXYGEN 60; BG HCO3 ACT 32.9 mmol/L (22.0-26.0); BG METHEMOGLOBIN 0.1 % (0.0-1.5); BG OXYGEN SATURATION 96.9 % (92.0-98.5); BG OXYHEMOGLOBIN 96.2 % (94.0-97.0); BG PCO2 45.9 mmHg (35.0-45.0); BG PH 7.473 (7.350-7.450); BG PO2 91.2 mmHg (75.0-100.0); BG PRESSURE SUPPORT 8; BG SAMPLE SITE RIGHT RADIAL; BG TOTAL HEMOGLOBIN 10.5 g/dL (12.0-18.0); BG VENT MODE VENT - CPAP
[2017-04-07] MEDS: PANTOPRAZOLE SODIUM 40 MG/VIAL IV SCH (12:03)
[2017-04-07] MEDS: HYDRALAZINE 20MG/ML VIAL IV PRN (12:04)
[2017-04-07] MEDS: NITROGLYCERIN OINT 1GM/INCH UDPKT TD SCH ×3 (12:57→23:22)
[2017-04-07 13:00] LABS: BG BASE EXCESS 9.4 mmol/L (-2.0-2.0); BG CARBOXYHEMOGLOBIN 0.4 % (0.5-1.5); BG DEOXYHEMOGLOBIN 4.3 % (0.0-5.0); BG FRACTION INSPIRED OXYGEN 50; BG HCO3 ACT 34.1 mmol/L (22.0-26.0); BG METHEMOGLOBIN 0.3 % (0.0-1.5); BG OXYGEN SATURATION 95.7 % (92.0-98.5); BG PCO2 47.1 mmHg (35.0-45.0); BG PH 7.478 (7.350-7.450); BG PO2 82.2 mmHg (75.0-100.0); BG PRESSURE SUPPORT 8; BG SAMPLE SITE RIGHT RADIAL; BG TOTAL HEMOGLOBIN 11.3 g/dL (12.0-18.0); BG VENT MODE VENT - CPAP
[2017-04-07] MEDS: VANCOMYCIN 2,000 MG in SODIUM CHLORIDE 0.9% 500 ML IV SCH ×2 (15:17→21:44)
[2017-04-07 16:15] LABS: BG DEOXYHEMOGLOBIN 6.2 % (0.0-5.0); BG FRACTION INSPIRED OXYGEN 50; BG HCO3 ACT 30.7 mmol/L (22.0-26.0); BG METHEMOGLOBIN 0.2 % (0.0-1.5); BG OXYGEN SATURATION 93.8 % (92.0-98.5); BG OXYHEMOGLOBIN 93.6 % (94.0-97.0); BG PCO2 40.2 mmHg (35.0-45.0); BG PH 7.501 (7.350-7.450); BG PO2 67.7 mmHg (75.0-100.0); BG SAMPLE SITE LEFT RADIAL; BG VENT MODE MASK - AEROSOL
[2017-04-07] MEDS: HYDROCODONE/ACETAMINOPHEN 5/325MG TABLET NG PRN ×2 (17:13→23:19)
[2017-04-07] MEDS: MEROPENEM 1,000 MG in SODIUM CHLORIDE 0.9% 100 ML IV SCH (21:44)
[2017-04-08] VITALS (38 sets, daily range): BP systolic 112–180; BP diastolic 50–98
[2017-04-08] MEDS: HYDRALAZINE 20MG/ML VIAL IV PRN ×2 (00:28→12:35)
[2017-04-08] MEDS: IPRATROPIUM/ALBUTEROL 0.5-3(2.5)MG/3ML NEB INH SCH ×4 (01:40→20:39)
[2017-04-08] MEDS: CLONIDINE 0.1MG TABLET PO PRN (01:45)
[2017-04-08] MEDS: MEROPENEM 1,000 MG in SODIUM CHLORIDE 0.9% 100 ML IV SCH ×3 (05:03→21:16)
[2017-04-08] MEDS: SODIUM CHLORIDE 0.9% INJ 3ML FLUSH IVF SCH ×3 (05:04→21:16)
[2017-04-08] MEDS: NITROGLYCERIN OINT 1GM/INCH UDPKT TD SCH ×4 (05:04→23:19)
[2017-04-08] MEDS: VANCOMYCIN 2,000 MG in SODIUM CHLORIDE 0.9% 500 ML IV SCH (05:04)
[2017-04-08] MEDS: HYDRALAZINE HCL 50MG TABLET PO SCH ×3 (05:05→21:22)
[2017-04-08] MEDS: HYDROCODONE/ACETAMINOPHEN 5/325MG TABLET NG PRN ×4 (05:05→23:10)
[2017-04-08] MEDS: CLONIDINE 0.2MG TABLET NG SCH ×3 (05:06→21:17)
[2017-04-08] MEDS: BLOOD SUGAR DIAGNOSTIC STRIP TEST SCH ×4 (06:16→21:17)
[2017-04-08] MEDS: INSULIN LISPRO 100 UNITS/ML SUBCUT SCH ×4 (06:20→21:26)
[2017-04-08] MEDS: DOCUSATE SODIUM SUGAR FREE 100MG/10ML UDC NG SCH (09:00)
[2017-04-08] MEDS: AMLODIPINE 10MG TABLET PO SCH (09:00)
[2017-04-08] MEDS: AZITHROMYCIN 500 MG TABLET PO SCH (09:00)
[2017-04-08] MEDS: METHYLPREDNISOLONE SOD SUCC 40 MG/ML VIAL IV SCH ×2 (09:00→21:15)
[2017-04-08] MEDS: ENOXAPARIN 40MG/0.4ML SYR SUBCUT SCH ×2 (09:01→21:14)
[2017-04-08] MEDS: METOPROLOL TARTRATE 25MG TABLET NG SCH ×2 (09:01→21:15)
[2017-04-08] MEDS: FUROSEMIDE 40MG/4ML VIAL IVP SCH (09:01)
[2017-04-08] MEDS: INSULIN GLARGINE UD 100 UNITS/ML SYR SUBCUT SCH ×2 (10:32→21:26)
[2017-04-08 11:31] LABS: BG BASE EXCESS 5.8 mmol/L (-2.0-2.0); BG BILEVEL POS AIRWAY PRESSURE 15/5; BG CARBOXYHEMOGLOBIN 0.3 % (0.5-1.5); BG FRACTION INSPIRED OXYGEN 50; BG HCO3 ACT 28.9 mmol/L (22.0-26.0); BG METHEMOGLOBIN 0.2 % (0.0-1.5); BG OXYHEMOGLOBIN 97.5 % (94.0-97.0); BG PCO2 35.9 mmHg (35.0-45.0); BG PH 7.523 (7.350-7.450); BG PO2 108.2 mmHg (75.0-100.0); BG SAMPLE SITE LEFT RADIAL; BG TOTAL HEMOGLOBIN 10.4 g/dL (12.0-18.0); BG VENT MODE MASK - BIPAP; BG VENT RATE 16 set
[2017-04-08 13:02] LABS: CHLORIDE 103 mEq/L (98-107)
[2017-04-08 13:04] LABS: VANCOMYCIN TROUGH 17.3 ug/mL (5.0-10.0)
[2017-04-08] MEDS: PANTOPRAZOLE SODIUM 40 MG/VIAL IV SCH (13:12)
[2017-04-08] MEDS ORDERED: POTASSIUM CHLORIDE 20MEQ/PACKET PO NR (14:30)
[2017-04-08] MEDS ORDERED: LIDOCAINE HCL/PF 1% 2ML VIAL ONE (16:17)
[2017-04-09] VITALS (49 sets, daily range): BP systolic 97–178; BP diastolic 16–105
[2017-04-09] MEDS: IPRATROPIUM/ALBUTEROL 0.5-3(2.5)MG/3ML NEB INH SCH ×4 (02:38→20:08)
[2017-04-09] MEDS: HYDRALAZINE HCL 50MG TABLET PO SCH ×3 (05:05→21:52)
[2017-04-09] MEDS: MEROPENEM 1,000 MG in SODIUM CHLORIDE 0.9% 100 ML IV SCH ×3 (05:05→21:49)
[2017-04-09] MEDS: NITROGLYCERIN OINT 1GM/INCH UDPKT TD SCH ×3 (05:06→18:35)
[2017-04-09] MEDS: CLONIDINE 0.2MG TABLET NG SCH ×3 (05:06→23:32)
[2017-04-09] MEDS: HYDROCODONE/ACETAMINOPHEN 5/325MG TABLET NG PRN ×3 (05:12→17:08)
[2017-04-09] MEDS: BLOOD SUGAR DIAGNOSTIC STRIP TEST SCH ×4 (05:31→20:57)
[2017-04-09] MEDS: INSULIN LISPRO 100 UNITS/ML SUBCUT SCH ×4 (05:44→21:13)
[2017-04-09] MEDS: SODIUM CHLORIDE 0.9% INJ 3ML FLUSH IVF SCH ×2 (05:45→14:54)
[2017-04-09 06:48] LABS: BASOPHILS % 0.7 % (0.0-2.0); EOSINOPHILS % 0.2 % (0.0-5.0); HEMOGLOBIN. 9.2 g/dL (14.0-18.0); LYMPHOCYTES % 9.4 % (20.0-50.0); MEAN CORPUSCULAR HEMOGLOBIN 28.9 pg (28.0-32.0); MEAN CORPUSCULAR VOLUME 90.7 fL (80.0-94.0); MEAN PLATELET VOLUME 10.2 fl (7.4-10.4); MONOCYTES % 3.7 % (2.0-8.0); PLATELET 347 x1000/uL (130-400); RED CELL DISTRIBUTION WIDTH 15.5 % (11.6-14.6)
[2017-04-09 07:12] LABS: CHLORIDE 102 mEq/L (98-107)
[2017-04-09] MEDS: DOCUSATE SODIUM SUGAR FREE 100MG/10ML UDC NG SCH (09:00)
[2017-04-09] MEDS: METHYLPREDNISOLONE SOD SUCC 40 MG/ML VIAL IV SCH ×2 (09:57→20:55)
[2017-04-09] MEDS: FUROSEMIDE 40MG/4ML VIAL IVP SCH (09:57)
[2017-04-09] MEDS: AZITHROMYCIN 500 MG TABLET PO SCH (09:58)
[2017-04-09] MEDS: INSULIN GLARGINE UD 100 UNITS/ML SYR SUBCUT SCH ×2 (10:06→21:55)
[2017-04-09] MEDS: ENOXAPARIN 40MG/0.4ML SYR SUBCUT SCH ×2 (10:08→20:57)
[2017-04-09] MEDS: AMLODIPINE 10MG TABLET PO SCH (10:14)
[2017-04-09] MEDS: METOPROLOL TARTRATE 25MG TABLET NG SCH ×2 (10:15→21:00)
[2017-04-09] MEDS: PANTOPRAZOLE SODIUM 40 MG/VIAL IV SCH (12:43)
[2017-04-09 23:52] LABS: BG BASE EXCESS 4.6 mmol/L (-2.0-2.0); BG CARBOXYHEMOGLOBIN 0.3 % (0.5-1.5); BG DEOXYHEMOGLOBIN 4.4 % (0.0-5.0); BG FRACTION INSPIRED OXYGEN 28; BG HCO3 ACT 27.8 mmol/L (22.0-26.0); BG METHEMOGLOBIN 0.2 % (0.0-1.5); BG OXYGEN SATURATION 95.6 % (92.0-98.5); BG OXYHEMOGLOBIN 95.1 % (94.0-97.0); BG PCO2 36.2 mmHg (35.0-45.0); BG PH 7.503 (7.350-7.450); BG PO2 79.7 mmHg (75.0-100.0); BG SAMPLE SITE LEFT RADIAL; BG TOTAL HEMOGLOBIN 10.8 g/dL (12.0-18.0); BG VENT MODE NASAL CANNULA
[2017-04-10] VITALS (22 sets, daily range): BP systolic 112–161; BP diastolic 42–91
[2017-04-10] MEDS: IPRATROPIUM/ALBUTEROL 0.5-3(2.5)MG/3ML NEB INH SCH ×4 (02:17→21:23)
[2017-04-10] MEDS: MEROPENEM 1,000 MG in SODIUM CHLORIDE 0.9% 100 ML IV SCH ×3 (05:31→21:30)
[2017-04-10] MEDS: NITROGLYCERIN OINT 1GM/INCH UDPKT TD SCH ×4 (05:33→23:05)
[2017-04-10] MEDS: CLONIDINE 0.2MG TABLET NG SCH ×3 (05:34→21:29)
[2017-04-10 06:09] LABS: BASOPHILS % 0.4 % (0.0-2.0); HEMATOCRIT. 28.3 % (42.0-52.0); HEMOGLOBIN. 9.1 g/dL (14.0-18.0); LYMPHOCYTES % 7.6 % (20.0-50.0); MEAN CORPUSCULAR HEMOGLOBIN 29.1 pg (28.0-32.0); MEAN CORPUSCULAR VOLUME 90.5 fL (80.0-94.0); MEAN PLATELET VOLUME 10.6 fl (7.4-10.4); MONOCYTES % 3.9 % (2.0-8.0); NEUTROPHILS % 88.1 % (40.0-76.0); PLATELET 336 x1000/uL (130-400); RED BLOOD CELL COUNT 3.13 mill/uL (4.7-6.1); RED CELL DISTRIBUTION WIDTH 15.2 % (11.6-14.6)
[2017-04-10 06:19] LABS: CHLORIDE 102 mEq/L (98-107)
[2017-04-10] MEDS: BLOOD SUGAR DIAGNOSTIC STRIP TEST SCH ×4 (07:30→21:30)
[2017-04-10] MEDS: HYDRALAZINE HCL 50MG TABLET PO SCH ×3 (07:34→21:29)
[2017-04-10 07:46] LABS: BG BASE EXCESS 4.3 mmol/L (-2.0-2.0); BG CARBOXYHEMOGLOBIN 0.8 % (0.5-1.5); BG DEOXYHEMOGLOBIN 10.4 % (0.0-5.0); BG HCO3 ACT 27.8 mmol/L (22.0-26.0); BG METHEMOGLOBIN 0.4 % (0.0-1.5); BG OXYGEN SATURATION 89.5 % (92.0-98.5); BG OXYHEMOGLOBIN 88.4 % (94.0-97.0); BG PCO2 37.1 mmHg (35.0-45.0); BG PH 7.492 (7.350-7.450); BG PO2 56.4 mmHg (75.0-100.0); BG SAMPLE SITE RIGHT BRACHIAL; BG TOTAL HEMOGLOBIN 9.5 g/dL (12.0-18.0); BG VENT MODE NASAL CANNULA
[2017-04-10] MEDS: INSULIN LISPRO 100 UNITS/ML SUBCUT SCH ×4 (07:47→21:48)
[2017-04-10] MEDS: PANTOPRAZOLE SODIUM 40 MG/VIAL IV SCH (09:08)
[2017-04-10] MEDS: FUROSEMIDE 40MG/4ML VIAL IVP SCH (09:08)
[2017-04-10] MEDS: METHYLPREDNISOLONE SOD SUCC 40 MG/ML VIAL IV SCH ×3 (09:08→23:05)
[2017-04-10] MEDS: AMLODIPINE 10MG TABLET PO SCH (09:09)
[2017-04-10] MEDS: METOPROLOL TARTRATE 25MG TABLET NG SCH ×2 (09:09→23:04)
[2017-04-10] MEDS: AZITHROMYCIN 500 MG TABLET PO SCH (09:09)
[2017-04-10] MEDS: ENOXAPARIN 40MG/0.4ML SYR SUBCUT SCH ×2 (09:09→21:28)
[2017-04-10] MEDS: DOCUSATE SODIUM SUGAR FREE 100MG/10ML UDC NG SCH (09:10)
[2017-04-10] MEDS: INSULIN GLARGINE UD 100 UNITS/ML SYR SUBCUT SCH ×2 (10:23→21:32)
[2017-04-10] MEDS: HYDROCODONE/ACETAMINOPHEN 5/325MG TABLET NG PRN ×2 (13:29→21:30)
[2017-04-10] MEDS ORDERED: INSULIN LISPRO 100 UNITS/ML SUBCUT SCH (21:30)
[2017-04-11] VITALS (11 sets, daily range): BP systolic 97–155; BP diastolic 55–105
[2017-04-11] MEDS: IPRATROPIUM/ALBUTEROL 0.5-3(2.5)MG/3ML NEB INH SCH ×3 (03:00→20:29)
[2017-04-11] MEDS: MEROPENEM 1,000 MG in SODIUM CHLORIDE 0.9% 100 ML IV SCH ×2 (07:03→14:00)
[2017-04-11] MEDS: CLONIDINE 0.2MG TABLET NG SCH ×3 (07:04→21:56)
[2017-04-11] MEDS: HYDRALAZINE HCL 50MG TABLET PO SCH ×3 (07:04→21:56)
[2017-04-11] MEDS: HYDROCODONE/ACETAMINOPHEN 5/325MG TABLET NG PRN ×2 (07:05→17:53)
[2017-04-11] MEDS: NITROGLYCERIN OINT 1GM/INCH UDPKT TD SCH ×3 (07:05→17:53)
[2017-04-11] MEDS: BLOOD SUGAR DIAGNOSTIC STRIP TEST SCH ×4 (07:41→21:00)
[2017-04-11 08:15] LABS: BASOPHILS % 0.6 % (0.0-2.0); EOSINOPHILS % 0.1 % (0.0-5.0); HEMATOCRIT. 29.7 % (42.0-52.0); HEMOGLOBIN. 9.5 g/dL (14.0-18.0); LYMPHOCYTES % 10.4 % (20.0-50.0); MEAN CORPUSCULAR VOLUME 90.4 fL (80.0-94.0); MEAN PLATELET VOLUME 10.5 fl (7.4-10.4); MONOCYTES % 4.9 % (2.0-8.0); PLATELET 368 x1000/uL (130-400); RED BLOOD CELL COUNT 3.29 mill/uL (4.7-6.1); RED CELL DISTRIBUTION WIDTH 15.9 % (11.6-14.6)
[2017-04-11] MEDS: AMLODIPINE 10MG TABLET PO SCH (08:24)
[2017-04-11] MEDS: AZITHROMYCIN 500 MG TABLET PO SCH (08:25)
[2017-04-11] MEDS: METOPROLOL TARTRATE 25MG TABLET NG SCH ×2 (08:25→21:56)
[2017-04-11] MEDS: DOCUSATE SODIUM SUGAR FREE 100MG/10ML UDC NG SCH (08:26)
[2017-04-11] MEDS: ENOXAPARIN 40MG/0.4ML SYR SUBCUT SCH ×2 (08:27→22:00)
[2017-04-11] MEDS: METHYLPREDNISOLONE SOD SUCC 40 MG/ML VIAL IV SCH (08:28)
[2017-04-11] MEDS: FUROSEMIDE 40MG/4ML VIAL IVP SCH (08:29)
[2017-04-11] MEDS: INSULIN LISPRO 100 UNITS/ML SUBCUT SCH ×4 (08:32→22:11)
[2017-04-11 09:21] LABS: BG BASE EXCESS 3.9 mmol/L (-2.0-2.0); BG DEOXYHEMOGLOBIN 1.6 % (0.0-5.0); BG FRACTION INSPIRED OXYGEN 40; BG HCO3 ACT 28.3 mmol/L (22.0-26.0); BG METHEMOGLOBIN 0.3 % (0.0-1.5); BG OXYGEN SATURATION 98.4 % (92.0-98.5); BG OXYHEMOGLOBIN 98.1 % (94.0-97.0); BG PCO2 41.5 mmHg (35.0-45.0); BG PH 7.451 (7.350-7.450); BG PO2 127.5 mmHg (75.0-100.0); BG SAMPLE SITE LEFT RADIAL; BG TOTAL HEMOGLOBIN 10.1 g/dL (12.0-18.0); BG VENT MODE NASAL CANNULA
[2017-04-11] MEDS: INSULIN GLARGINE UD 100 UNITS/ML SYR SUBCUT SCH ×2 (10:30→22:11)
[2017-04-11] MEDS: PANTOPRAZOLE SODIUM 40 MG/VIAL IV SCH (12:50)
[2017-04-11] MEDS: PREDNISONE 20MG TABLET PO SCH (17:53)
[2017-04-12] VITALS (10 sets, daily range): BP systolic 104–231; BP diastolic 54–165
[2017-04-12] MEDS: NITROGLYCERIN OINT 1GM/INCH UDPKT TD SCH ×4 (00:58→18:01)
[2017-04-12] MEDS: HYDROCODONE/ACETAMINOPHEN 5/325MG TABLET NG PRN ×3 (01:05→15:04)
[2017-04-12] MEDS: IPRATROPIUM/ALBUTEROL 0.5-3(2.5)MG/3ML NEB INH SCH ×4 (02:12→21:10)
[2017-04-12 07:20] LABS: HEMATOCRIT 27.5 % (42.0-52.0); HEMOGLOBIN 9.1 g/dL (14.0-18.0); MEAN CORPUSCULAR HEMOGLOBIN 30.1 pg (28.0-32.0); MEAN CORPUSCULAR VOLUME 90.8 fL (80.0-94.0); PLATELET 344 x1000/uL (130-400); RED BLOOD CELL COUNT 3.03 mill/uL (4.7-6.1)
[2017-04-12] MEDS: CLONIDINE 0.2MG TABLET NG SCH ×3 (07:26→22:00)
[2017-04-12] MEDS: HYDRALAZINE HCL 50MG TABLET PO SCH ×3 (07:26→22:38)
[2017-04-12] MEDS: BLOOD SUGAR DIAGNOSTIC STRIP TEST SCH ×4 (08:16→21:15)
[2017-04-12] MEDS: INSULIN LISPRO 100 UNITS/ML SUBCUT SCH ×4 (09:29→21:36)
[2017-04-12] MEDS: AZITHROMYCIN 500 MG TABLET PO SCH (09:36)
[2017-04-12] MEDS: DOCUSATE SODIUM SUGAR FREE 100MG/10ML UDC NG SCH (09:36)
[2017-04-12] MEDS: METOPROLOL TARTRATE 25MG TABLET NG SCH ×2 (09:37→21:11)
[2017-04-12] MEDS: AMLODIPINE 10MG TABLET PO SCH (09:37)
[2017-04-12] MEDS: PREDNISONE 20MG TABLET PO SCH ×2 (09:37→17:25)
[2017-04-12] MEDS: ENOXAPARIN 40MG/0.4ML SYR SUBCUT SCH ×2 (09:38→21:15)
[2017-04-12] MEDS: FUROSEMIDE 40MG/4ML VIAL IVP SCH (10:17)
[2017-04-12] MEDS: INSULIN GLARGINE UD 100 UNITS/ML SYR SUBCUT SCH ×2 (10:26→21:21)
[2017-04-12] MEDS: PANTOPRAZOLE SODIUM 40 MG/VIAL IV SCH (11:19)
[2017-04-12 12:16] LABS: BG BASE EXCESS 0.1 mmol/L (-2.0-2.0); BG CARBOXYHEMOGLOBIN 0.4 % (0.5-1.5); BG DEOXYHEMOGLOBIN 4.5 % (0.0-5.0); BG FRACTION INSPIRED OXYGEN 21; BG HCO3 ACT 23.6 mmol/L (22.0-26.0); BG METHEMOGLOBIN 0.3 % (0.0-1.5); BG OXYGEN SATURATION 95.5 % (92.0-98.5); BG OXYHEMOGLOBIN 94.8 % (94.0-97.0); BG PCO2 33.9 mmHg (35.0-45.0); BG PO2 80.6 mmHg (75.0-100.0); BG SAMPLE SITE RIGHT RADIAL; BG TOTAL HEMOGLOBIN 10.6 g/dL (12.0-18.0); BG VENT MODE ROOM AIR
[2017-04-12] MEDS ORDERED: LIDOCAINE HCL/PF 1% 2ML VIAL ONE (13:02)
[2017-04-12] MEDS: ACETAMINOPHEN 325MG TABLET PO PRN (17:30)
[2017-04-13] VITALS: BP 135/67
[2017-04-13] MEDS: ACETAMINOPHEN 325MG TABLET PO PRN (00:11)
[2017-04-13] MEDS: NITROGLYCERIN OINT 1GM/INCH UDPKT TD SCH (00:12)
[2017-04-13] MEDS: IPRATROPIUM/ALBUTEROL 0.5-3(2.5)MG/3ML NEB INH SCH (01:35)
== END 2017-04-13 03:30 | disposition left against medical advice (07) | DRG 870 ==
LOC: ER 11:06 → ENRESERV 14:15 → CANRESERV 14:15 → EDBEDREQSVC 14:48 → MICUNO 14:58 → EDBEDREQ 15:01 → EDBEDREQSVC 19:25 → ENRESERV 20:14 → MICUNO 04-02 12:00 → 5EST 04-10 10:45
PROVIDERS: ADMIT Internal Medicine; ATTEND Internal Medicine
PROC: 5A1955Z Respiratory Ventilation, Greater than 96 Consecutive Hours (ICD-10-PCS; principal; 2017-03-30)
PROC: 0BH17EZ Insertion of Endotracheal Airway into Trachea, Via Natural or Artificial Opening (ICD-10-PCS; 2017-03-30)
PROC: 02HV33Z Insertion of Infusion Device into Superior Vena Cava, Percutaneous Approach (ICD-10-PCS; 2017-04-04)
PROC: B548ZZA Ultrasonography of Superior Vena Cava, Guidance (ICD-10-PCS; 2017-04-04)
PROC: 30233N1 Transfusion of Nonautologous Red Blood Cells into Peripheral Vein, Percutaneous Approach (ICD-10-PCS; 2017-04-05)
DX: A41.9 Sepsis, unspecified organism (principal); J96.01 Acute respiratory failure with hypoxia; Z99.11 Dependence on respirator [ventilator] status; J18.9 Pneumonia, unspecified organism; E44.0 Moderate protein-calorie malnutrition; J44.0 Chronic obstructive pulmonary disease with (acute) lower respiratory infection; J98.11 Atelectasis; Z68.43 Body mass index [BMI] 50.0-59.9, adult; I11.0 Hypertensive heart disease with heart failure; E11.51 Type 2 diabetes mellitus with diabetic peripheral angiopathy without gangrene; I50.9 Heart failure, unspecified; E87.6 Hypokalemia; D64.9 Anemia, unspecified; Z53.21 Procedure and treatment not carried out due to patient leaving prior to being seen by health care provider; K21.9 Gastro-esophageal reflux disease without esophagitis; E66.01 Morbid (severe) obesity due to excess calories; F41.9 Anxiety disorder, unspecified; E11.65 Type 2 diabetes mellitus with hyperglycemia; E11.621 Type 2 diabetes mellitus with foot ulcer; E78.1 Pure hyperglyceridemia; F17.210 Nicotine dependence, cigarettes, uncomplicated; L97.529 Non-pressure chronic ulcer of other part of left foot with unspecified severity; Z79.4 Long term (current) use of insulin; Z79.899 Other long term (current) drug therapy; Z87.820 Personal history of traumatic brain injury; Z91.19 Patient's noncompliance with other medical treatment and regimen
CPT/HCPCS: 31500; 36415; 36569; 36600; 51702; 71045; 73620; 76937; 80048; 80053; 80061; 80202; 80305; 80307; 81003; 82375; 82550; 82553; 82805; 82962; 83036; 83605; 83690; 83880; 84439; 84443; 84478; 84484; 84550; 85025; 85027; 85379; 85610; 85651; 86038; 86140; 86850; 86900; 86920; 87040; 87070; 87077; 87086; 87186; 87804; 92610; 93005; 93306; 93970; 94002; 94003; 94640; 94660; 96365; 96375; 97116; 97163; 97167; 97530; 97535; 99291; A6261; C1725; C9113; J0360; J0692; J1200; J1650; J1815; J1940; J2060; J2185; J2250; J2543; J2704; J2920; J3010; J3370; J3480; J3490; J7040; J7050; J7060; J7512; J7620; P9016; A4315

== ENCOUNTER 2017-10-23 19:14 | Emergency (ER) | payer MEDICARE, MEDICAID ==
[~2017-10-23] VITALS: Ht 177.8 cm; Wt 215.0 kg
[~2017-10-23 19:14] MED LIST changes: +CHOL20004 PO; +CYCL5TAB PO; +FLUO-124 PO; +HYDR-4009 PO; +OMEP20CA10 PO; +OXYC15TA88 PO; +PENT400T11 PO; +PREG100C PO; +TRIA1TAB92 PO; +ZOLP10TA6 PO
[2017-10-23] MEDS ORDERED: HALOPERIDOL LACTATE 5MG/ML VIAL IM STA ×2 (21:08→21:17)
[2017-10-23] MEDS ORDERED: LORAZEPAM 2MG/ML CPJ IV STA (21:17)
[2017-10-23] MEDS ORDERED: DIPHENHYDRAMINE 50MG/ML VIAL IM STA (21:17)
[2017-10-23] MEDS ORDERED: LORAZEPAM 2MG/ML CPJ IM PRN (21:30)
[2017-10-23 22:58] LABS: BASOPHILS % 0.5 % (0.0-2.0); EOSINOPHILS % 3.6 % (0.0-5.0); HEMATOCRIT. 35.5 % (42.0-52.0); HEMOGLOBIN. 12.1 g/dL (14.0-18.0); LYMPHOCYTES % 31.5 % (20.0-50.0); MEAN CORPUSCULAR HEMOGLOBIN 29.8 pg (28.0-32.0); MEAN CORPUSCULAR VOLUME 87.6 fL (80.0-94.0); MEAN PLATELET VOLUME 9.2 fl (7.4-10.4); MONOCYTES % 6.2 % (2.0-8.0); NEUTROPHILS % 58.2 % (40.0-76.0); PLATELET 297 x1000/uL (130-400); RED BLOOD CELL COUNT 4.05 mill/uL (4.7-6.1); RED CELL DISTRIBUTION WIDTH 12.7 % (11.6-14.6)
[2017-10-23 23:02] LABS: CHLORIDE 102 mEq/L (98-107)
[2017-10-23 23:07] LABS: ETHANOL BLOOD < 10 mg/dL
[2017-10-24 01:11] LABS: CLARITY URINE CLEAR (CLEAR); COLOR URINE YELLOW (YELLOW); KETONES URINE NEGATIVE (NEGATIVE); LEUKOCYTE ESTERASE URINE NEGATIVE (NEGATIVE); NITRITE URINE NEGATIVE (NEGATIVE); OCCULT BLOOD URINE NEGATIVE (NEGATIVE); PH URINE 6.5 (4.5-8.0); PROTEIN URINE 1+ (NEGATIVE); SPECIFIC GRAVITY URINE 1.009 (1.005-1.030); UROBILINOGEN URINE 0.2 E.U./dL (0.2-1.0)
[2017-10-24 01:23] LABS: *AMPHETAMINES SCREEN URINE NEGATIVE (NEGATIVE); *BARBITURATES SCREEN URINE NEGATIVE (NEGATIVE); *BENZODIAZEPINES SCREEN URINE NEGATIVE (NEGATIVE); *COCAINE SCREEN URINE NEGATIVE (NEGATIVE); METHADONE URINE SCREEN NEGATIVE (NEGATIVE); OPIATES URINE SCREEN PRESUMTIVE POSITIVE (NEGATIVE)
[2017-10-24 01:24] LABS: CANNABINOID URINE SCREEN NEGATIVE (NEGATIVE); PHENCYCLIDINE URINE SCREEN NEGATIVE (NEGATIVE)
[2017-10-24] MEDS ORDERED: CLONIDINE 0.1MG TABLET PO ONE (05:15)
[2017-10-24] MEDS ORDERED: LORAZEPAM 1MG TABLET PO ONE (06:00)
[2017-10-24] MEDS ORDERED: ATOR10TA69 PO (08:19)
[2017-10-24] MEDS ORDERED: PREG150C PO (08:19)
[2017-10-24] MEDS ORDERED: OMEP20TA2 PO (08:19)
[2017-10-24] MEDS ORDERED: PENT400T11 PO (08:19)
[2017-10-24] MEDS ORDERED: HYDR-4009 PO (08:19)
[2017-10-24] MEDS ORDERED: BENA20TA10 PO (08:19)
[2017-10-24] MEDS ORDERED: METF850T2 PO (08:19)
[2017-10-24] MEDS ORDERED: CARV6.2548 PO (08:19)
[2017-10-24] MEDS ORDERED: FURO40TA5 PO (08:19)
[2017-10-24] MEDS ORDERED: FLUO20TA29 PO (08:19)
[2017-10-24] MEDS ORDERED: LORA1TAB PO (08:19)
[2017-10-24] MEDS ORDERED: POTA-9 PO (08:19)
[2017-10-24] MEDS ORDERED: DYR5 PO (08:19)
[2017-10-24] MEDS ORDERED: CYCL10TA7 PO (08:19)
[2017-10-24] MEDS ORDERED: HYDROCODONE/ACETAMINOPHEN 5/325MG TABLET PO ONE (10:30)
[2017-10-24 13:36] VITALS: BP 185/89
== END 2017-10-24 13:39 | disposition home or self-care (01) ==
LOC: ER 22:29
DX: R45.851 Suicidal ideations (principal); R45.1 Restlessness and agitation; I10 Essential (primary) hypertension; F12.90 Cannabis use, unspecified, uncomplicated; F11.10 Opioid abuse, uncomplicated; F15.10 Other stimulant abuse, uncomplicated; Z79.899 Other long term (current) drug therapy
CPT/HCPCS: 36415; 80053; 80305; 80307; 80329; 81003; 85025; 96372; 99285; G0482; J1200; J1630; J2060

== ENCOUNTER 2018-12-09 11:29 | Inpatient (IN) | payer MEDICARE ==
[~2018-12-09] VITALS: Ht 190.5 cm; Wt 19.1 kg
[~2018-12-09 11:29] MED LIST changes: +ATOR10TA69 PO; +BENA20TA10 PO; -BENAZEPRIL PO; +CARV6.2548 PO; +CYCL10TA7 PO; -CYCL5TAB PO; +DYR5 PO; -FLUO-124 PO; +FLUO20TA29 PO; +FURO40TA5 PO; -GLYB5TAB7 PO; -INSU3INS6 SUBCUT; -LORA0.5T2 PO; +LORA1TAB PO; +METF-415 PO; -METFORMIN PO; -OMEP20CA10 PO; +OMEP20TA2 PO; -OXYC15TA88 PO; -PENT400T11 PO; +PENT400T16 PO; +POTA-9 PO; -PREG100C PO; +PREG150C PO; -TRIA1TAB92 PO; -ZOLP10TA6 PO
[2018-12-09] MEDS ORDERED: SODIUM CHLORIDE 0.9% 1,000 ML IV ONE (12:42)
[2018-12-09] MEDS ORDERED: CEFTRIAXONE 1 G PREMIX 50 ML IV ONE (12:45)
[2018-12-09 13:50] LABS: BASOPHILS % 1.3 % (0.0-2.0); EOSINOPHILS % 3.4 % (0.0-5.0); HEMATOCRIT. 33.2 % (42.0-52.0); HEMOGLOBIN. 11.1 g/dL (14.0-18.0); LYMPHOCYTES % 26.5 % (20.0-50.0); MEAN CORPUSCULAR VOLUME 89.5 fL (80.0-94.0); MEAN PLATELET VOLUME 8.9 fl (7.4-10.4); MONOCYTES % 7.8 % (2.0-8.0); PLATELET 324 x1000/uL (130-400); RED CELL DISTRIBUTION WIDTH 14.9 % (11.6-14.6)
[2018-12-09 13:53] LABS: CHLORIDE 97 mEq/L (98-107)
[2018-12-09] MEDS ORDERED: INSULIN REGULAR (HUMULIN R) 300UNITS/3ML SUBCUT ONE (14:15)
[2018-12-09] MEDS ORDERED: MORPHINE SULFATE 4 MG/ML CPJ (NOT FOR IM USE) IV ONE ×2 (14:15→18:30)
[2018-12-09 14:43] LABS: CLARITY URINE CLEAR (CLEAR); COLOR URINE YELLOW (YELLOW); KETONES URINE NEGATIVE (NEGATIVE); LEUKOCYTE ESTERASE URINE NEGATIVE (NEGATIVE); NITRITE URINE NEGATIVE (NEGATIVE); OCCULT BLOOD URINE NEGATIVE (NEGATIVE); PROTEIN URINE NEGATIVE (NEGATIVE); SPECIFIC GRAVITY URINE 1.039 (1.005-1.030); UROBILINOGEN URINE 0.2 E.U./dL (0.2-1.0)
[2018-12-09] MEDS ORDERED: SODIUM CHLORIDE 0.9% 1000ML BAG (SEPSIS BOLUS) IV ONE (15:30)
[2018-12-09] MEDS ORDERED: CLINDAMYCIN 300 MG in DEXTROSE 5% WATER 50 ML IV ONE (15:30)
[2018-12-09 22:30] VITALS: BP 137/73
[2018-12-10 00:14] VITALS: BP 137/73
[2018-12-10] MEDS ORDERED: HYDROCODONE/ACETAMINOPHEN 10/325MG TABLET PO PRN (00:30)
[2018-12-10] MEDS ORDERED: LORAZEPAM 1MG TABLET PO PRN (00:30)
[2018-12-10 00:34] VITALS: BP 137/73
== END 2018-12-10 01:00 | disposition left against medical advice (07) | DRG 603 ==
LOC: ER 11:29 → 8WST 17:26 → EDBEDREQSVC 17:29 → EDBEDREQ 17:29 → ENRESERV 19:13
PROVIDERS: ADMIT Internal Medicine; ATTEND Internal Medicine
DX: L03.90 Cellulitis, unspecified (principal); E11.9 Type 2 diabetes mellitus without complications; F17.210 Nicotine dependence, cigarettes, uncomplicated; I10 Essential (primary) hypertension; Z79.899 Other long term (current) drug therapy
CPT/HCPCS: 36415; 71045; 81003; 82962; 83605; 84145; 93005; 96365; 96375; 96376; 99291; J0696; J1815; J2270; J3490; J7030; J7060